=== PATIENT | male | born 1995 ===

== ENCOUNTER 2021-11-28 10:07 | Outpatient (CLI) | payer BC, SELFPAY ==
[2021-11-28 15:28] LABS: HIV 1/2/P24 Combo Screen* Negative (Negative)
[2021-11-28 16:56] LABS: Chlamydia DNA Amplified* NOT DETECTED (No Detected); GC DNA Amplified* NOT DETECTED (No Detected)
[2021-11-28 17:17] LABS: Hepatitis B Surface Antigen* Negative (Negative)
[2021-11-28 17:34] LABS: Hepatitis C Virus Antibody* Negative (Negative)
[2021-11-28 17:44] LABS: Hepatitis B Surface Antibody* Indeterminant (Negative)
[2021-11-29 21:13] LABS: Rapid Plasma Reagin (RPR) Non Reactive (Non Reactive)
== END 2021-11-28 10:08 | disposition home or self-care (01) ==
PROVIDERS: PCP Family Medicine; Visit Provider Family Medicine
DX: Z11.3 Encounter for screening for infections with a predominantly sexual mode of transmission (principal)
CPT/HCPCS: 86592; 86703; 86706; 86803; 87340; 87491; 87591

== ENCOUNTER 2022-12-03 14:27 | Outpatient (CLI) | payer BC, SELFPAY ==
[2022-12-03 19:21] LABS: Chlamydia DNA Amplified* NOT DETECTED (No Detected); GC DNA Amplified* NOT DETECTED (No Detected)
== END 2022-12-03 14:28 | disposition home or self-care (01) ==
PROVIDERS: PCP Family Medicine; Visit Provider Nurse Practitioner Family
DX: Z11.3 Encounter for screening for infections with a predominantly sexual mode of transmission (principal)
CPT/HCPCS: 86592; 86703; 86706; 86803; 87340; 87491; 87591

== ENCOUNTER 2023-04-08 11:03 | Outpatient (CLI) | payer BC, SELFPAY ==
[2023-04-08 23:07] LABS: Chlamydia DNA Amplified* NOT DETECTED (No Detected); GC DNA Amplified* NOT DETECTED (No Detected)
== END 2023-04-08 11:04 | disposition home or self-care (01) ==
PROVIDERS: PCP Nurse Practitioner Family; Visit Provider Nurse Practitioner Family
DX: Z11.3 Encounter for screening for infections with a predominantly sexual mode of transmission (principal); Z13.6 Encounter for screening for cardiovascular disorders; Z13.1 Encounter for screening for diabetes mellitus
CPT/HCPCS: 80061; 82947; 86592; 86703; 87491; 87591